=== PATIENT | female | born 1965 | race Caucasian/White ===

== ENCOUNTER → 2018-10-21 | Outpatient (CLI) | payer OTHER ==
[~2018-10-21] MED LIST: ASPI-667 PO; MULT1TAB52 PO; RALO60TA PO; VENTOLIN IH ONE
== END | disposition home or self-care (01) ==
LOC: RT 15:56
PROVIDERS: ATTEND Physician Assistant
DX: J44.9 Chronic obstructive pulmonary disease, unspecified (principal); R06.00 Dyspnea, unspecified
CPT/HCPCS: 94060; J7613